=== PATIENT | male | born 1965 | race Caucasian/White ===

== ENCOUNTER 2016-08-03 01:41 | Emergency (ER) | payer OTHER, SELFPAY ==
[~2016-08-03] VITALS: Ht 175.3 cm; Wt 87.0 kg
[2016-08-03 01:44] VITALS: BP 147/99
[2016-08-03] MEDS ORDERED: DIPH,PERTUSS(ACELL),TET VAC/PF 0.5 ML IM-VACC ONE ×2 (06:00→06:19)
== END 2016-08-03 06:49 | disposition home or self-care (01) ==
LOC: ED 06:43
DX: S50.02XA Contusion of left elbow, initial encounter (principal); X58.XXXA Exposure to other specified factors, initial encounter; Y93.89 Activity, other specified; Y92.89 Other specified places as the place of occurrence of the external cause; Y99.9 Unspecified external cause status
CPT/HCPCS: 70450; 90471; 90715